=== PATIENT | female | born 1980 | race Caucasian/White ===

== ENCOUNTER 2024-03-29 09:13 | Day surgery (SDC) | payer OTHER ==
[2024-03-21 15:58] VITALS: BMI 23.3
[2024-03-29 09:41] VITALS: RESP 16
[2024-03-29] MEDS ORDERED: PROPOFOL 100 ML ONE (10:17)
[2024-03-29 10:43] VITALS: PULSE 48; TEMP 97.7
[2024-03-29 11:08] VITALS: BP 97/50
== END 2024-03-29 11:03 | disposition home or self-care (01) ==
LOC: FASU-ENDO 09:13
PROVIDERS: ATTEND Internal Medicine Gastroenterology
PROC: 0DJD8ZZ Inspection of Lower Intestinal Tract, Via Natural or Artificial Opening Endoscopic (ICD-10-PCS; principal; 2024-03-29 10:23)
DX: Z12.11 Encounter for screening for malignant neoplasm of colon (principal); K64.0 First degree hemorrhoids; K64.8 Other hemorrhoids; Z80.0 Family history of malignant neoplasm of digestive organs
CPT/HCPCS: 81025